=== PATIENT | male | born 1955 | race Caucasian/White ===

== ENCOUNTER 2017-02-15 14:04 | Emergency (ER) | payer OTHER ==
[~2017-02-15] VITALS: Ht 182.9 cm; Wt 124.5 kg
[2017-02-15 14:05] VITALS: BP 137/109
[2017-02-15] MEDS ORDERED: PROP20 PO (14:12)
[2017-02-15] MEDS ORDERED: PRAM15 PO (14:12)
[2017-02-15] MEDS ORDERED: TOPI100 PO (14:12)
[2017-02-15] MEDS ORDERED: IBUPROFEN 800 MG TABLET PO ONE (14:30)
== END 2017-02-15 15:18 | disposition home or self-care (01) ==
LOC: EMS 14:06
DX: S90.31XA Contusion of right foot, initial encounter (principal); S29.9XXA Unspecified injury of thorax, initial encounter; F17.210 Nicotine dependence, cigarettes, uncomplicated; X58.XXXA Exposure to other specified factors, initial encounter; Y93.02 Activity, running; Y92.488 Other paved roadways as the place of occurrence of the external cause; Y99.8 Other external cause status
CPT/HCPCS: 99284